=== PATIENT | male | born 1955 | race Hispanic/Latino ===

== ENCOUNTER 2018-10-04 16:58 | Emergency (ER) | payer OTHER ==
[2018-10-04 17:58] LABS: Absolute Monocytes 0.4 K/uL (0.1-1.3); Basophils % 0.9 % (0-1.3); Eosinophils % 7.2 % (0-4.4); Hematocrit 24.8 % (39.6-49.0); Lymphocytes % 21.4 % (15.3-44.8); MPV 7.9 fL (7.6-11.3); Monocytes % 8.4 % (3.3-12.3); Protime INR 1.27; RBC Red Blood Cell Count 3.56 M/uL (4.33-5.43)
[2018-10-04] MEDS ORDERED: FUROSEMIDE 20 MG/ 2ML VIAL ONE (17:59)
--- NOTE | 2018-10-04 17:59 | ER ---
Nurse's Notes [facility] Name: Dar Bui Age: 63 yrs Sex: Male : 1955 Arrival Date: 10/04/2018 Time: 17:06 Bed 19 Private MD: Diagnosis: Dyspnea;Anemia, unspecified;Chest pain, unspecified;Gastrointestinal hemorrhage, unspecified;Arredondo's esophagus-history Presentation: 10/04 17:07 Presenting complaint: EMS states: CHEST PAIN AND SOB x4 DAYS, BUT NOT CURRENTLY. bp Transition of care: [place] [facility]. Onset of symptoms is unknown. Risk Assessment: Do you want to hurt yourself or someone else? Patient reports no desire to harm self or others. Initial Sepsis Screen: Does the patient meet any 2 criteria? No. Patient's initial sepsis screen is negative. Does the patient have a suspected source of infection? No. Patient's initial sepsis screen is negative. Care prior to arrival: Glucose check: 175. 17:07 Method Of Arrival: EMS: [facility] bp 17:07 Acuity: ANA 2 bp Triage Assessment: 17:22 General: Appears in no apparent distress. comfortable, obese, Behavior is cooperative, bp appropriate for age, flat. Pain: Denies pain. EENT: No signs and/or symptoms were reported regarding the EENT system. Neuro: Level of Consciousness is awake, alert, obeys commands, Oriented to person, place, time, situation, Appropriate for age. Cardiovascular: Rhythm is sinus rhythm. Respiratory: Airway is patent Respiratory effort is even, unlabored, Respiratory pattern is regular, symmetrical. GI: No signs and/or symptoms were reported involving the gastrointestinal system. : No signs and/or symptoms were reported regarding the genitourinary system. Derm: No deficits noted. Musculoskeletal: Circulation, motion, and sensation intact. Range of motion: intact in all extremities. Historical: - Allergies: 17:22 No Known Allergies; bp - Home Meds: 17:22 aspirin 81 mg Oral TbEC 1 tab once daily [Active]; atorvastatin 40 mg oral tab 1 tab bp once daily [Active]; benztropine 1 mg Oral tab 1 tab 2 times per day [Active]; citalopram 40 mg tab 1 tab once daily [Active]; empagliflozin oral 25 MG oral [Active]; ergocalciferol (vitamin D2) 50,000 unit oral cap 1 cap once daily [Active]; furosemide 40 mg Oral tab 1 tab 2 times per day [Active]; gabapentin 300 mg oral cap 2 caps 3 times per day [Active]; glipizide 10 mg Oral tab 2 tabs 2 times per day [Active]; insulin aspart subcutaneous subcutaneous 75 unit [Active]; Insulin Glargine Sub-Q [Active]; Victoza 2-Jamil 0.6 mg/0.1 mL (18 mg/3 mL) subcutaneous pnij 0.2 mL once daily [Active]; losartan 50 mg oral tab 1 tab once daily [Active]; metformin 1,000 mg Oral tab 1 tab 2 times per day [Active]; potassium chloride 20 mEq Oral TbTQ 1 tab once daily [Active]; risperidone 1 mg oral tab 0.5 tab 2 times per day [Active]; - PMHx: 17:22 HERPES GENITALIS; DYSPHAGIA; SLEEP APNEA; Hypertension; Hyperlipidemia; DIABETIC bp NEUROPATHIES; GERD; ARREDONDO ESOPHAGUS; UPPER GI BLEEDING; Schizophrenia; Diabetes - IDDM; - Immunization history:: Adult Immunizations up to date. - Social history:: Smoking status: Patient/guardian denies using tobacco. - Ebola Screening: : Patient negative for fever greater than or equal to 101.5 degrees Fahrenheit, and additional compatible Ebola Virus Disease symptoms Patient denies exposure to infectious person Patient denies travel to an Ebola-affected area in the 21 days before illness onset No symptoms or risks identified at this time. - Family history:: not pertinent. Screenin:28 Abuse screen: Denies threats or abuse. Denies injuries from another. Nutritional ed1 screening: No deficits noted. Tuberculosis screening: No symptoms or risk factors identified. Fall Risk No fall in past 12 months (0 pts). No secondary diagnosis (0 pts). IV access (20 points). Ambulatory Aid- None/Bed Rest/Nurse Assist (0 pts). Gait- Normal/Bed Rest/Wheelchair (0 pts) Mental Status- Oriented to own ability (0 pts). Total Greene Fall Scale indicates No Risk (0-24 pts). Assessment: 19:28 General: Appears in no apparent distress. Behavior is calm, cooperative. Pain: Denies ed1 pain. Neuro: Level of Consciousness is awake, alert, obeys commands, Oriented to person, place, time, situation. Cardiovascular: Reports chest pain, shortness of breath, since [employer] Heart tones S1 S2 present Rhythm is regular. Respiratory: Reports shortness of breath on exertion Airway is patent Respiratory effort is even, unlabored, Respiratory pattern is regular, symmetrical. GI: Abdomen is round Bowel sounds present X 4 quads. Abd is soft and non tender X 4 quads. Patient currently denies diarrhea, nausea, vomiting. : No signs and/or symptoms were reported regarding the genitourinary system. EENT: Oral mucosa is moist. Derm: Skin is intact, is healthy with good turgor, Skin is dry, Skin is pale, Skin temperature is warm. 20:25 Reassessment: Patient appears in no apparent distress at this time. Patient and/or ed1 family updated on plan of care and expected duration. Pain level reassessed. Patient is alert, oriented x 3, equal unlabored respirations, skin warm/dry/pink. Patient denies pain at this time. Pain: Denies pain. 21:30 Reassessment: Patient appears in no apparent distress at this time. No changes from ed1 previously documented assessment. Patient and/or family updated on plan of care and expected duration. Pain level reassessed. Patient is alert, oriented x 3, equal unlabored respirations, skin warm/dry/pink. Patient denies pain at this time. 23:15 Reassessment: Patient appears in no apparent distress at this time. No changes from ed1 previously documented assessment. Patient and/or family updated on plan of care and expected duration. Pain level reassessed. Patient is alert, oriented x 3, equal unlabored respirations, skin warm/dry/pink. Patient denies pain at this time. 10/05 01:52 Reassessment: Patient appears in no apparent distress at this time. Patient and/or ed1 family updated on plan of care and expected duration. Pain level reassessed. Patient is alert, oriented x 3, equal unlabored respirations, skin warm/dry/pink. Unit #1 of PRBC's completed. 02:19 Reassessment: Unit #2 of PRBC's requested. ed1 03:02 Reassessment: Patient appears in no apparent distress at this time. Patient and/or ed1 family updated on plan of care and expected duration. Pain level reassessed. Patient is alert, oriented x 3, equal unlabored respirations, skin warm/dry/pink. Unit #2 PRBC's started. Transportation here to forklift picker patient. Patient denies pain at this time. Respiratory: Airway is patent Respiratory effort is even, unlabored, Respiratory pattern is regular, symmetrical, Breath sounds are clear bilaterally. Vital Signs: 10/04 17:25 BP 131 / 52; Pulse 84; Resp 15; Temp 98; Pulse Ox 97% ; Weight 131.54 kg; Height 5 ft. bp 8 in. (172.72 cm); 19:28 BP 127 / 58; Pulse 71; Resp 13; Pulse Ox 99% on R/A; Pain 0/10; ed1 20:25 BP 103 / 54; Pulse 70; Resp 20; Pulse Ox 99% on 2 lpm NC; Pain 0/10; ed1 21:30 BP 113 / 68; Pulse 76; Resp 18; Pulse Ox 99% on 2 lpm NC; Pain 0/10; ed1 23:15 BP 117 / 48; Pulse 72; Resp 15; Temp 100.1(O); Pulse Ox 100% on 2 lpm NC; Pain 0/10; ed1 0312 01:52 BP 130 / 61; Pulse 61; Resp 15; Temp 98.3(O); Pulse Ox 97% on 2 lpm NC; Pain 0/10; ed1 03:02 BP 112 / 49; Pulse 71; Resp 16; Temp 97.9(O); Pulse Ox 99% on 2 lpm NC; Pain 0/10; ed1 11 17:25 Body Mass Index 44.09 (131.54 kg, 172.72 cm) bp ED Course: 10/04 17:06 Patient arrived in ED. bp 17:07 Bruno Man MD is Attending Physician. ramon 17:08 Triage completed. bp 17:12 EKG done, by plastics technician. reviewed by Bruno Man MD. dt2 17:22 Kim Mulligan is Primary Nurse. ag2 17:25 Arm band placed on. bp 17:44 Kim Mulligan is Primary Nurse. ag2 17:45 Inserted saline lock: 20 gauge in right antecubital area, using aseptic technique. bp Blood collected. Patient maintains SpO2 saturation greater than 95% on room air. 17:52 Jw Sanchez, NEIDA is Primary Nurse. bp 17:57 Anna Torres MD is Hospitalizing Provider. ramon 18:05 Sanna Lucio MD is Hospitalizing Provider. ramon 18:29 XRAY Chest (1 view) In Process Unspecified. EDMS 18:45 Notified ED physician of a critical lab result(s). HGB 7.7. aa5 19:28 Patient has correct armband on for positive identification. Placed in gown. Bed in low ed1 position. Call light in reach. Side rails up X2. dishwasher busser on. Pulse ox on. NIBP on. Assisted with urinal. Cleaned of incontinence. Linen changed. 19:33 Primary Nurse role handed off by Jw Sanchez, NEIDA ed1 19:33 Holly Wolfe, NEIDA is Primary Nurse. ed1 03/12 00:17 Patient moved to [place] via stretcher. vm2 01:56 Resting quietly. transfer transportation to receiving facility. ed1 03:02 No provider procedures requiring assistance completed. Patient admitted, IV remains in ed1 place. intact, No redness/swelling at site. Administered Medications: 10/04 17:52 Drug: Lasix 40 mg Route: IVP; Site: right antecubital; ag2 19:34 Follow up: Urine output 1000 ml; Response: No adverse reaction ed1 18:38 Drug: Pepcid 20 mg Route: IVP; Site: right antecubital; ag2 19:34 Follow up: Response: No adverse reaction ed1 18:38 Drug: Lovenox 100 mg Route: Sub-Q; Site: left lower abdomen; ag2 19:33 Follow up: Response: No adverse reaction ed1 18:38 Drug: Lopressor 25 mg Route: PO; ag2 19:33 Follow up: Response: No adverse reaction ed1 19:51 Drug: ProTONIX 40 mg Route: IVP; Site: right antecubital; ed1 20:15 Follow up: Response: No adverse reaction bb 22:37 Drug: Tylenol 650 mg Route: PO; ed1 23:00 Follow up: Response: No adverse reaction bb 22:38 Drug: Benadryl 12.5 mg Route: IVP; Site: right antecubital; ed1 23:00 Follow up: Response: No adverse reaction bb Medication: 23:15 Blood products: PRBCs X 1 unit given. See transfusion record. ed1 Output: 19:34 Urine: 1000ml; Total: 1000ml. ed1 Outcome: 17:58 Decision to Hospitalize by Provider. [facility] 19:03 ER care complete, transfer ordered by . ramon 03 03:02 Transferred by ground EMS [facility]. to other acute care facility: [facility]. ed1 Transfer form completed. X-rays sent w/ patient. Condition: stable Discharge instructions given to patient, Instructed on the need for transfer, Demonstrated understanding of instructions. 03:06 Patient left the ED. ed1 Signatures: Dispatcher [employer] EDBruno Hobbs MD MD cha Ballard, Brenda, RN RN bb Kay Higgins, RN RN aa5 Holly Wolfe RN NEIDA ed1 Pearl Evans 2 Jw Sanchez RN RN Kim Poole ag2 Smitha Wyman dt2 Corrections: (The following items were deleted from the chart) 0311 18:46 17:52 BASIC METABOLIC PANEL+C.LAB.BRZ drawn and sent. ag2 EDMS 18:46 17:52 CBC+H.LAB.BRZ drawn and sent. ag2 EDMS 18:46 17:52 HEPATIC FUNCTION+C.LAB.BRZ drawn and sent. ag2 EDMS 18:46 17:52 MAGNESIUM+C.LAB.BRZ drawn and sent. ag2 EDMS 18:46 17:52 PROBNP+C.LAB.BRZ drawn and sent. ag2 EDMS 18:46 17:52 PROTIME (+INR)+COAG.LAB.BRZ drawn and sent. ag2 EDMS 18:46 17:52 TROPONIN (EMERG DEPT USE ONLY)+C.LAB.BRZ drawn and sent. 2 EDMS
--- NOTE | 2018-10-04 17:59 | EDPHYS ---
Physician Documentation [facility] Name: Dar Bui Age: 63 yrs Sex: Male : 1955 Arrival Date: 10/04/2018 Time: 17:06 Bed 19 Private MD: ED Physician Bruno Man HPI: 10/04 17:53 This 63 yrs old Male presents to ER via EMS with complaints of Chest Pain. [facility] 17:53 The patient or guardian reports chest pain that is located primarily in the anterior ramon chest wall, bilaterally. Onset: 2 day(s) ago. The pain does not radiate. Associated signs and symptoms: The patient has no apparent associated signs or symptoms. The chest pain is described as a pressure. Modifying factors: The symptoms are alleviated by remaining still, the symptoms are aggravated by breathing, movement. Severity of pain: At its worst the pain was mild. The patient has experienced similar episodes in the past, several times. Historical: - Allergies: 17:22 No Known Allergies; bp - Home Meds: 17:22 aspirin 81 mg Oral TbEC 1 tab once daily [Active]; atorvastatin 40 mg oral tab 1 tab bp once daily [Active]; benztropine 1 mg Oral tab 1 tab 2 times per day [Active]; citalopram 40 mg tab 1 tab once daily [Active]; empagliflozin oral 25 MG oral [Active]; ergocalciferol (vitamin D2) 50,000 unit oral cap 1 cap once daily [Active]; furosemide 40 mg Oral tab 1 tab 2 times per day [Active]; gabapentin 300 mg oral cap 2 caps 3 times per day [Active]; glipizide 10 mg Oral tab 2 tabs 2 times per day [Active]; insulin aspart subcutaneous subcutaneous 75 unit [Active]; Insulin Glargine Sub-Q [Active]; Victoza 2-Jamil 0.6 mg/0.1 mL (18 mg/3 mL) subcutaneous pnij 0.2 mL once daily [Active]; losartan 50 mg oral tab 1 tab once daily [Active]; metformin 1,000 mg Oral tab 1 tab 2 times per day [Active]; potassium chloride 20 mEq Oral TbTQ 1 tab once daily [Active]; risperidone 1 mg oral tab 0.5 tab 2 times per day [Active]; - PMHx: 17:22 HERPES GENITALIS; DYSPHAGIA; SLEEP APNEA; Hypertension; Hyperlipidemia; DIABETIC bp NEUROPATHIES; GERD; ARREDONDO ESOPHAGUS; UPPER GI BLEEDING; Schizophrenia; Diabetes - IDDM; - Immunization history:: Adult Immunizations up to date. - Social history:: Smoking status: Patient/guardian denies using tobacco. - Ebola Screening: : Patient negative for fever greater than or equal to 101.5 degrees Fahrenheit, and additional compatible Ebola Virus Disease symptoms Patient denies exposure to infectious person Patient denies travel to an Ebola-affected area in the 21 days before illness onset No symptoms or risks identified at this time. - Family history:: not pertinent. ROS: 17:53 Constitutional: Negative for fever, chills, and weight loss, Eyes: Negative for injury, ramon pain, redness, and discharge, ENT: Negative for injury, pain, and discharge, Cardiovascular: Negative for chest pain, palpitations, and edema, Abdomen/GI: Negative for abdominal pain, nausea, vomiting, diarrhea, and constipation, Back: Negative for injury and pain, : Negative for injury, bleeding, discharge, and swelling, Skin: Negative for injury, rash, and discoloration, Neuro: Negative for headache, weakness, numbness, tingling, and seizure. 17:53 ENT: Negative for injury or acute deformity. 17:53 Respiratory: Positive for cough, shortness of breath. 17:53 Abdomen/GI: Positive for abdominal distension. 17:53 MS/extremity: Positive for swelling, tenderness, of the right leg and left leg. Exam: 17:53 Constitutional: This is a well developed, well nourished patient who is awake, alert, ramon and in no acute distress. Head/Face: Normocephalic, atraumatic. Eyes: Pupils equal round and reactive to light, extra-ocular motions intact. Lids and lashes normal. Conjunctiva and sclera are non-icteric and not injected. Cornea within normal limits. Periorbital areas with no swelling, redness, or edema. ENT: Nares patent. No nasal discharge, no septal abnormalities noted. Tympanic membranes are normal and external auditory canals are clear. Oropharynx with no redness, swelling, or masses, exudates, or evidence of obstruction, uvula midline. Mucous membranes moist. Neck: Trachea midline, no thyromegaly or masses palpated, and no cervical lymphadenopathy. Supple, full range of motion without nuchal rigidity, or vertebral point tenderness. No Meningismus. Chest/axilla: Normal chest wall appearance and motion. Nontender with no deformity. No lesions are appreciated. Cardiovascular: Regular rate and rhythm with a normal S1 and S2. No gallops, murmurs, or rubs. Normal PMI, no JVD. No pulse deficits. Respiratory: Lungs have equal breath sounds bilaterally, clear to auscultation and percussion. No rales, rhonchi or wheezes noted. No increased work of breathing, no retractions or nasal flaring. Back: No spinal tenderness. No costovertebral tenderness. Full range of motion. Male : Normal genitalia with no discharge or lesions. Skin: Warm, dry with normal turgor. Normal color with no rashes, no lesions, and no evidence of cellulitis. Neuro: Awake and alert, GCS 15, oriented to person, place, time, and situation. Cranial nerves II-XII grossly intact. Motor strength 5/5 in all extremities. Sensory grossly intact. Cerebellar exam normal. Normal gait. Psych: Awake, alert, with orientation to person, place and time. Behavior, mood, and affect are within normal limits. 17:53 Abdomen/GI: Inspection: distension, Bowel sounds: normal, Palpation: Liver: no appreciated palpable abnormalities, Hernia: not appreciated. Vital Signs: 17:25 BP 131 / 52; Pulse 84; Resp 15; Temp 98; Pulse Ox 97% ; Weight 131.54 kg; Height 5 ft. bp 8 in. (172.72 cm); 19:28 BP 127 / 58; Pulse 71; Resp 13; Pulse Ox 99% on R/A; Pain 0/10; ed1 20:25 BP 103 / 54; Pulse 70; Resp 20; Pulse Ox 99% on 2 lpm NC; Pain 0/10; ed1 21:30 BP 113 / 68; Pulse 76; Resp 18; Pulse Ox 99% on 2 lpm NC; Pain 0/10; ed1 23:15 BP 117 / 48; Pulse 72; Resp 15; Temp 100.1(O); Pulse Ox 100% on 2 lpm NC; Pain 0/10; ed1 03/12 01:52 BP 130 / 61; Pulse 61; Resp 15; Temp 98.3(O); Pulse Ox 97% on 2 lpm NC; Pain 0/10; ed1 03:02 BP 112 / 49; Pulse 71; Resp 16; Temp 97.9(O); Pulse Ox 99% on 2 lpm NC; Pain 0/10; ed1 11 17:25 Body Mass Index 44.09 (131.54 kg, 172.72 cm) bp MDM: 10/04 17:07 Patient medically screened. [facility] 17:57 Data reviewed: vital signs, nurses notes, lab test result(s), EKG, radiologic studies, [facility] plain films. 10/04 17:36 Order name: Basic Metabolic Panel; Complete Time: 18:27 bp 10/04 17:36 Order name: CBC with Diff; Complete Time: 22:40 bp 10/04 17:36 Order name: LFT's; Complete Time: 18:27 bp 10/04 17:36 Order name: Magnesium; Complete Time: 18:27 bp 10/04 17:36 Order name: NT PRO-BNP; Complete Time: 18:27 bp 10/04 17:36 Order name: PT-INR; Complete Time: 18:55 bp 10/04 17:36 Order name: Troponin (emerg Dept Use Only); Complete Time: 18:27 bp 10/04 17:26 Order name: EKG Electrocardiogram; Complete Time: 19:35 EDMS 10/04 17:36 Order name: XRAY Chest (1 view); Complete Time: 18:55 bp 11 18:46 Order name: Type And Screen [facility] 10/04 19:51 Order name: Packed RBC Leukored -1 EDNY 10/04 20:46 Order name: ABO/RH no charge; Complete Time: 22:40 EDNY 10/04 21:20 Order name: CBC Smear Scan; Complete Time: 22:40 EDNY 10/04 23:08 Order name: CT Chest For PE Angio [facility] 10/04 17:36 Order name: Cardiac monitoring; Complete Time: 18:42 bp 10/04 17:36 Order name: EKG - Nurse/Tech; Complete Time: 18:42 bp 10/04 17:36 Order name: IV Saline Lock; Complete Time: 18:42 bp 10/04 17:36 Order name: Labs collected and sent; Complete Time: 18:42 bp 10/04 17:36 Order name: O2 Per Protocol; Complete Time: 18:42 bp 10/04 17:36 Order name: O2 Sat Monitoring; Complete Time: 18:42 bp 10/04 17:44 Order name: Cardiac monitoring; Complete Time: 17:53 ramon 10/04 17:44 Order name: EKG - Nurse/Tech; Complete Time: 17:53 ramon 10/04 17:44 Order name: IV Saline Lock; Complete Time: 18:43 ramon 10/04 17:44 Order name: Labs collected and sent; Complete Time: 18:43 ramon 10/04 17:44 Order name: O2 Per Protocol; Complete Time: 18:43 ramon 10/04 17:44 Order name: O2 Sat Monitoring; Complete Time: 18:42 ramon 10/04 18:47 Order name: Transfuse; Complete Time: 23:56 ramon Administered Medications: 17:52 Drug: Lasix 40 mg Route: IVP; Site: right antecubital; ag2 19:34 Follow up: Urine output 1000 ml; Response: No adverse reaction ed1 18:38 Drug: Pepcid 20 mg Route: IVP; Site: right antecubital; ag2 19:34 Follow up: Response: No adverse reaction ed1 18:38 Drug: Lovenox 100 mg Route: Sub-Q; Site: left lower abdomen; ag2 19:33 Follow up: Response: No adverse reaction ed1 18:38 Drug: Lopressor 25 mg Route: PO; ag2 19:33 Follow up: Response: No adverse reaction ed1 19:51 Drug: ProTONIX 40 mg Route: IVP; Site: right antecubital; ed1 20:15 Follow up: Response: No adverse reaction bb 22:37 Drug: Tylenol 650 mg Route: PO; ed1 23:00 Follow up: Response: No adverse reaction bb 22:38 Drug: Benadryl 12.5 mg Route: IVP; Site: right antecubital; ed1 23:00 Follow up: Response: No adverse reaction bb Disposition: 10/04/18 19:03 Transfer ordered to Other Acute Care Facility. Diagnosis are Dyspnea, Anemia, unspecified, Chest pain, unspecified, Gastrointestinal hemorrhage, unspecified, Arredondo's esophagus - history. - Reason for transfer: Higher level of care. - Accepting physician is to [facility]. - Condition is Fair. - Problem is new. - Symptoms have improved. Signatures: Dispatcher [employer] Bruno Marrero MD MD cha Riggs, Erika, RN RN ed1 Jw Sanchez RN RN bp Kim Mulligan ag2 Whit Galarza RN bb Corrections: (The following items were deleted from the chart) 17:51 17:45 Chest Single View+RAD.RAD.BRZ ordered. [facility] 17:58 17:58 Hospitalization Ordered by Anna Torres MD for Inpatient Admission. Preliminary ramon diagnosis is Other chest pain; Unspecified combined systolic (congestive) and diastolic (congestive) heart failure. Bed requested for Telemetry/MedSurg (Inpatient). Status is Inpatient Admission. Condition is Fair. Problem is new. Symptoms have improved. UTI on Admission? No. ramon 18:05 17:58 10/04/2018 17:58 Hospitalization Ordered by Anna Torres MD for Inpatient ramon Admission. Preliminary diagnosis is Other chest pain; Unspecified combined systolic (congestive) and diastolic (congestive) heart failure; Type 2 diabetes mellitus. Bed requested for Telemetry/MedSurg (Inpatient). Status is Inpatient Admission. Condition is Fair. Problem is new. Symptoms have improved. UTI on Admission? No. ramon 18:46 17:45 BASIC METABOLIC PANEL+C.LAB.BRZ ordered. [facility] EDNY 18:46 17:45 CBC+H.LAB.BRZ ordered. [facility] EDNY 18:46 17:45 HEPATIC FUNCTION+C.LAB.BRZ ordered. [facility] EDNY 18:46 17:45 MAGNESIUM+C.LAB.BRZ ordered. [facility] EDNY 18:46 17:45 PROBNP+C.LAB.BRZ ordered. [facility] EDNY 18:46 17:45 PROTIME (+INR)+COAG.LAB.BRZ ordered. [facility] EDNY 18:46 17:45 TROPONIN (EMERG DEPT USE ONLY)+C.LAB.BRZ ordered. [facility] EDNY 18:53 18:05 10/04/2018 17:58 Hospitalization Ordered by Sanna Lucio MD for Inpatient ramon Admission. Preliminary diagnosis is Other chest pain; Unspecified combined systolic (congestive) and diastolic (congestive) heart failure; Type 2 diabetes mellitus. Bed requested for Telemetry/MedSurg (Inpatient). Status is Inpatient Admission. Condition is Fair. Problem is new. Symptoms have improved. UTI on Admission? No. ramon 18:57 18:53 10/04/2018 17:58 Hospitalization Ordered by Sanna Lucio MD for Inpatient ramon Admission. Preliminary diagnosis is Other chest pain; Unspecified combined systolic (congestive) and diastolic (congestive) heart failure; Type 2 diabetes mellitus; Gastrointestinal hemorrhage, unspecified - lower. Bed requested for Telemetry/MedSurg (Inpatient). Status is Inpatient Admission. Condition is Fair. Problem is new. Symptoms have improved. UTI on Admission? No. ramon 19:04 19:03 10/04/2018 19:03 Transfer ordered to [facility]. ramon Diagnosis is Dyspnea; Anemia, unspecified. Reason for transfer: Higher level of care. Accepting physician is to [facility]. Condition is Fair. Problem is new. Symptoms have improved. ramon 20:30 19:04 10/04/2018 19:03 Transfer ordered to [facility]. ramon Diagnosis is Dyspnea; Anemia, unspecified; Chest pain, unspecified; Gastrointestinal hemorrhage, unspecified; Arredondo's esophagus - history. Reason for transfer: Higher level of care. Accepting physician is to [facility]. Condition is Fair. Problem is new. Symptoms have improved. ramon 20:35 20:30 10/04/2018 19:03 Transfer ordered to [facility]. ramon Diagnosis is Dyspnea; Anemia, unspecified; Chest pain, unspecified; Gastrointestinal hemorrhage, unspecified; Arredondo's esophagus - history. Reason for transfer: Higher level of care. Accepting physician is to [facility]. Condition is Fair. Problem is new. Symptoms have improved. ramon 20:37 20:35 10/04/2018 19:03 Transfer ordered to [facility]. ramon Diagnosis is Dyspnea; Anemia, unspecified; Chest pain, unspecified; Gastrointestinal hemorrhage, unspecified; Arredondo's esophagus - history. Reason for transfer: Higher level of care. Accepting physician is to [facility]. Condition is Fair. Problem is new. Symptoms have improved. ramon 23:10 20:37 10/04/2018 19:03 Transfer ordered to [facility]. ramon Diagnosis is Dyspnea; Anemia, unspecified; Chest pain, unspecified; Gastrointestinal hemorrhage, unspecified; Arredondo's esophagus - history. Reason for transfer: Higher level of care. Accepting physician is to . Condition is Fair. Problem is new. Symptoms have improved. ramon 23:10 23:10 10/04/2018 19:03 Transfer ordered to [facility]. ramon Diagnosis is Dyspnea; Anemia, unspecified; Chest pain, unspecified; Gastrointestinal hemorrhage, unspecified; Arredondo's esophagus - history. Reason for transfer: Higher level of care. Accepting physician is to [facility]. Condition is Fair. Problem is new. Symptoms have improved. [facility] 10/05 03:06 10/04 23:10 10/04/2018 19:03 Transfer ordered to Other Acute Care Facility. Diagnosis ed1 is Dyspnea; Anemia, unspecified; Chest pain, unspecified; Gastrointestinal hemorrhage, unspecified; Arredondo's esophagus - history. Reason for transfer: Higher level of care. Accepting physician is to [facility]. Condition is Fair. Problem is new. Symptoms have improved. ramon
[2018-10-04 18:12] LABS: ALT/SGPT 32 U/L (12-78); AST/SGOT 35 U/L (15-37); Albumin 3.4 g/dL (3.4-5.0); Alkaline Phosphatase 98 U/L (45-117); BUN Blood Urea Nitrogen 8 mg/dL (7-18); Bicarbonate 29 mmol/L (21-32); Bilirubin Direct 0.2 mg/dL (0-0.2); Bilirubin Total 0.4 mg/dL (0.2-1.0); Glucose Level 164 mg/dL (74-106); Magnesium 2.1 mg/dL (1.8-2.4); NT PRO-BNP 58 pg/mL (<125); Potassium 3.9 mmol/L (3.5-5.1); Protein, Total 6.9 g/dL (6.4-8.2); Sodium Level 141 mmol/L (136-145); Troponin (Emerg Dept Use Only) < 0.02 ng/mL (0.0-0.045)
--- NOTE | 2018-10-04 18:38 | RAD REPORT ---
EXAM DESCRIPTION: RAD - Chest Single View - 10/04/2018 6:27 pm CLINICAL HISTORY: Chest pain, shortness of breath COMPARISON: December 2016 TECHNIQUE: AP portable chest image was obtained 1811 hours . FINDINGS: Lungs are clear. Heart and vasculature are normal. No measurable pleural effusion and no p neumothorax. No acute bony abnormality seen. No acute aortic finding. Tracy are similar to comparison. IMPRESSION: No acute cardiopulmonary process. No significant interval change.
[2018-10-04] MEDS ORDERED: FAMOTIDINE 20 MG/2 ML VIAL IV ONE (18:39)
[2018-10-04] MEDS ORDERED: METOPROLOL TAR 25 MG TAB ONE ×2 (18:39→18:45)
[2018-10-04] MEDS ORDERED: ENOXAPARIN 100 MG/ML SYR SQ ONE (18:39)
[2018-10-04] MEDS ORDERED: PANTOPRAZOLE 40 MG INJ ONE (19:58)
[2018-10-04 21:18] LABS: Platelet Estimate ADEQ; Urine White Blood Cell Casts OK
[2018-10-04 21:19] LABS: Anisocytosis 1+; Blood Morphology Comment NOTED (NOT SEEN); Hypochromasia 1+; Ovalocytes 1+; Poikilocytosis 1+; Polychromasia 1+
[2018-10-04] MEDS ORDERED: DIPHENHYDRAMINE 50 MG/ML VIAL ONE (22:40)
[2018-10-04] MEDS ORDERED: ACETAMINOPHEN 325 MG TABLET ONE (22:40)
[2018-10-04] MEDS ORDERED: NA CHLORIDE 0.9% 500 ML ONE (22:41)
--- NOTE | 2018-10-05 12:07 | RAD REPORT ---
EXAM DESCRIPTION: CT - Chest For Pe Angio - 10/05/2018 5:14 am CLINICAL HISTORY: The patient is 63 years old and is Male; CHEST PAIN TECHNIQUE: Axial computed tomographic angiography images of the chest with intravenous contrast [facility] pulmonary embolism protocol. Sagittal and coronal reformatted images were created and reviewed. Sagittal and coronal reformatted images were created and reviewed. This CT exam was performed [facility] one or more of the following dose reduction techniques: automated exposure control, adjustment of the mA and/or kV according to patient size, and/or use of iterative reconstruction technique. MIP reconstructed images were created and reviewed. COMPARISON: No relevant prior studies available. FINDINGS: Artifacts: The exam is suboptimal secondary to motion artifact. Limitations: Suboptimal study secondary to artifact related to patient body habitus. Pulmonary arteries: There are no obvious filling defects identified within the pulmonary arterie s to suggest pulmonary embolism. Aorta: No acute findings. No thoracic aortic aneurysm. Lungs: Unremarkable. No mass. No consolidation. Pleural space: Unremarkable. No significant effusion. No pneumothorax. Heart: A small pericardial effusion is present. No evidence of RV dysfunction. Mediastinum: A small hiatal hernia is present. Bones/joints: No acute fracture. No dislocation. Soft tissues: Unremarkable. Lymph nodes: Unremarkable. No enlarged lymph nodes. IMPRESSION: No evidence of pulmonary embolism. Electronically signed by: Linh Porras MD 10/05/2018 2:30 AM CDT Due to temporary technical issues with the PACS/Fluency reporting system, reports are being signed by the in house radiologist as a courtesy to ensure prompt reporting. The interpreting radiologist is f ully responsible for the content of the report.
--- NOTE | 2018-10-07 10:24 | EKG ---
Test Date: 2018-10-04 Test Time: 17:07:25 Evaluation Assistant: MARC MEASUREMENT RESULTS: Intervals: Rate: 88 MI: 220 QRSD: 92 QT: 384 QTc: 464 [place]: P: 28 MI: 220 QRS: -28 T: 25 INTERPRETIVE STATEMENTS: Sinus rhythm with 1st degree AV block Inferior infarct, age undetermined Abnormal ECG Compared to ECG 11/28/2002 09:46:00 First degree AV block now present Left-axis deviation no longer present Myocardial infarct finding still present Electronically Signed On 10-04-18 21:14:08 CDT by Kirk Almonte
== END 2018-10-05 03:06 ==
LOC: ER 16:58 → UNDOADMOB 20:49 → ERHOLD 20:49
PROC: 30233N1 Transfusion of Nonautologous Red Blood Cells into Peripheral Vein, Percutaneous Approach (ICD-10-PCS; principal; 2018-10-05)
DX: D64.9 Anemia, unspecified (principal); K92.2 Gastrointestinal hemorrhage, unspecified; R06.00 Dyspnea, unspecified; K22.70 Barrett's esophagus without dysplasia; I10 Essential (primary) hypertension; E11.40 Type 2 diabetes mellitus with diabetic neuropathy, unspecified; E78.5 Hyperlipidemia, unspecified; F20.9 Schizophrenia, unspecified; Z79.82 Long term (current) use of aspirin; Z79.4 Long term (current) use of insulin
CPT/HCPCS: 36415; 36430; 71045; 71275; 80048; 80076; 83735; 83880; 84484; 85025; 85610; 86850; 86900; 86901; 93005; 96372; 96374; 96375; 99285; C9113; J1650; J1940; P9016; Q9967